=== PATIENT | female | born 1995 | race African-American/Black ===

== ENCOUNTER 2020-09-28 10:06 | Emergency (ER) | payer MEDICAID ==
[~2020-09-28] VITALS: Ht 170.2 cm; Wt 91.0 kg
[2020-09-28] MEDS ORDERED: KETOROLAC 30MG/ML VIAL IM ONE (10:45)
[2020-09-28 11:36] VITALS: BP 126/93
[2020-09-28] MEDS ORDERED: IBUP-2029 MT (11:49)
[2020-09-28] MEDS ORDERED: ACET-2708 MT (11:59)
== END 2020-09-28 12:07 | disposition home or self-care (01) ==
LOC: ER 10:06
DX: S63.592A Other specified sprain of left wrist, initial encounter (principal); X58.XXXA Exposure to other specified factors, initial encounter; Y93.89 Activity, other specified; Y92.89 Other specified places as the place of occurrence of the external cause; Y99.8 Other external cause status; J45.909 Unspecified asthma, uncomplicated; Z79.899 Other long term (current) drug therapy
CPT/HCPCS: 73110; 73130; 81025; 99284; J1885

== ENCOUNTER 2020-10-04 13:18 | Emergency (ER) | payer MEDICAID ==
[~2020-10-04] VITALS: Ht 172.7 cm; Wt 90.0 kg
[~2020-10-04 13:18] MED LIST: ACET-2708 MT
[2020-10-04] MEDS ORDERED: ACETAMINOPHEN 325MG TABLET PO ONE (14:00)
[2020-10-04] MEDS ORDERED: ACET325T52 MT (14:27)
[2020-10-04 14:59] VITALS: BP 121/67
== END 2020-10-04 14:59 | disposition home or self-care (01) ==
LOC: ER 14:38
DX: M25.562 Pain in left knee (principal); Z91.81 History of falling
CPT/HCPCS: 99282

== ENCOUNTER 2025-03-20 08:26 | Emergency (ER) | payer MEDICAID ==
[~2025-03-20] VITALS: Ht 172.7 cm; Wt 105.0 kg
[~2025-03-20 08:26] MED LIST changes: +ACET-3800 MT
[2025-03-20 08:37] VITALS: O2SAT 98
[2025-03-20] MEDS: KETOROLAC 30MG/ML VIAL IM ONE (09:12)
[2025-03-20 09:28] LABS: CLARITY URINE TURBID (CLEAR); COLOR URINE YELLOW (YELLOW); GLUCOSE URINE NEGATIVE (NEGATIVE); KETONES URINE TRACE (NEGATIVE); LEUKOCYTE ESTERASE URINE NEGATIVE (NEGATIVE); NITRITE URINE NEGATIVE (NEGATIVE); OCCULT BLOOD URINE NEGATIVE (NEGATIVE); PH URINE 6.0 (4.5-8.0); PROTEIN URINE TRACE (NEGATIVE); SPECIFIC GRAVITY URINE 1.033 (1.005-1.030); UROBILINOGEN URINE 0.2 E.U./dL (0.2-1.0)
[2025-03-20 09:28] LABS: BASOPHILS % 0.8 % (0.0-2.0); EOSINOPHILS % 4.1 % (0.0-5.0); HEMATOCRIT. 36.5 % (36.0-48.0); HEMOGLOBIN. 12.2 g/dL (12.0-16.0); LYMPHOCYTES % 41.9 % (20.0-50.0); MEAN PLATELET VOLUME 7.9 fl (7.4-10.4); MONOCYTES % 7.5 % (2.0-8.0); NEUTROPHILS % 45.7 % (40.0-76.0); PLATELET 362 x1000/uL (130-400); RED BLOOD CELL COUNT 3.74 mill/uL (4.2-5.4); RED CELL DISTRIBUTION WIDTH 14.2 % (11.6-14.6)
[2025-03-20 09:41] LABS: CREATININE 0.9 mg/dL (0.6-1.0)
[2025-03-20 09:42] LABS: UREA NITROGEN BLOOD 11 mg/dL (9-23)
[2025-03-20 09:43] LABS: ASPARTATE AMINOTRANSFERASE 12 IU/L (<34)
[2025-03-20 09:44] LABS: BILIRUBIN DIRECT < 0.1 mg/dL (<=3.0); BILIRUBIN TOTAL 0.4 mg/dL (0.1-1.0); PROTEIN TOTAL 7.5 g/dL (6.0-8.3)
[2025-03-20 09:47] LABS: HCG SCREEN NEGATIVE
[2025-03-20 10:00] LABS: SQUAMOUS EPITHELIAL CELL URINE 3+ /lpf (RARE/1+)
[2025-03-20 10:02] LABS: HYALINE CASTS URINE 0-5 /lpf
[2025-03-20 10:03] LABS: BACTERIA URINE 2+; RBC URINE 0-2 /hpf (0-2); WBC URINE 0-2 /hpf (0-2)
[2025-03-20 10:05] LABS: *AMPHETAMINES SCREEN URINE NEGATIVE (NEGATIVE)
[2025-03-20 10:06] LABS: *BARBITURATES SCREEN URINE NEGATIVE (NEGATIVE); *BENZODIAZEPINES SCREEN URINE NEGATIVE (NEGATIVE); *COCAINE SCREEN URINE NEGATIVE (NEGATIVE); CANNABINOID URINE SCREEN PRESUMPTIVE POSITIVE (NEGATIVE); ECSTASY MDMA SCREEN URINE NEGATIVE (NEGATIVE); METHADONE URINE SCREEN NEGATIVE (NEGATIVE); OPIATES URINE SCREEN NEGATIVE (NEGATIVE); PHENCYCLIDINE URINE SCREEN NEGATIVE (NEGATIVE)
[2025-03-20] MEDS ORDERED: FAMO-135 MT (10:17)
[2025-03-20 10:48] VITALS: BP 114/74; PULSE 69; RESP 18; TEMP 36.9; O2SAT 99
== END 2025-03-20 10:50 | disposition home or self-care (01) ==
LOC: ER 08:26
DX: R10.11 Right upper quadrant pain (principal); J45.909 Unspecified asthma, uncomplicated; Z79.899 Other long term (current) drug therapy
CPT/HCPCS: 36415; 76700; 80048; 80076; 80305; 80320; 81003; 81025; 84703; 85025; 99284; G0480